=== PATIENT | female | born 2000 | race Two or more races ===

== ENCOUNTER 2023-01-12 09:41 | Emergency (ER) | payer OTHER ==
[2023-01-12 09:57] VITALS: BP 123/77; PULSE 98; RESP 20; TEMP 98.4; BMI 26.4
[2023-01-12] MEDS ORDERED: ACETAMINOPHEN 325 MG TABLET (FP) PO ONE (10:42)
[2023-01-12] MEDS ORDERED: IBUPROFEN 400 MG TABLET (FP) PO ONE ×2 (10:42→11:10)
[2023-01-12] MEDS ORDERED: ACETAMINOPHEN 325 MG TABLET (FP) ONE (11:10)
[2023-01-12 11:43] LABS: THROAT:GRP A STREP NOT DETECTED (NOTDETECTED)
== END 2023-01-12 11:36 | disposition home or self-care (01) ==
LOC: JER 09:41
DX: R05.1 Acute cough (principal); R09.81 Nasal congestion; J02.9 Acute pharyngitis, unspecified
CPT/HCPCS: 0241U-QW; 87651; 99283-25

== ENCOUNTER 2023-02-19 23:19 | Emergency (ER) | payer OTHER ==
[2023-02-19 23:25] VITALS: BP 114/76; PULSE 92; RESP 18; TEMP 98; BMI 26.9
[2023-02-20] MEDS ORDERED: KETOROLAC TROMETHAMINE 15 MG/ML VIAL IM ONE (00:01)
[2023-02-20] MEDS ORDERED: LIDOCAINE 5% TOPICAL PATCH TP ONE (00:01)
[2023-02-20] MEDS ORDERED: ACETAMINOPHEN 500 MG TABLET (FP) PO ONE (00:01)
[2023-02-20] MEDS ORDERED: LIDOCAINE 5% TOPICAL PATCH ONE (00:27)
[2023-02-20] MEDS ORDERED: ACETAMINOPHEN 500 MG TABLET (FP) ONE (00:27)
[2023-02-20] MEDS ORDERED: KETOROLAC TROMETHAMINE 15 MG/ML VIAL ONE (00:27)
[2023-02-20] MEDS ORDERED: LIDOCAINE PATCH REMOVAL MC ONE (13:00)
== END 2023-02-20 02:01 | disposition home or self-care (01) ==
LOC: JER 23:19
PROC: 3E023GC Introduction of Other Therapeutic Substance into Muscle, Percutaneous Approach (ICD-10-PCS; principal; 2023-02-19)
DX: M54.89 Other dorsalgia (principal); Y04.8XXA Assault by other bodily force, initial encounter
CPT/HCPCS: 71101-TC-LT-FY; 99284-25

== ENCOUNTER 2023-04-09 14:23 | Emergency (ER) | payer OTHER ==
[2023-04-09 14:32] VITALS: BP 91/67; PULSE 86; RESP 16; TEMP 97.8; BMI 27.9
[2023-04-09] MEDS ORDERED: ACETAMINOPHEN 500 MG TABLET (FP) PO ONE (15:29)
[2023-04-09] MEDS ORDERED: ACETAMINOPHEN 500 MG TABLET (FP) ONE (15:43)
[2023-04-09 15:55] LABS: EPI CELLS 3 /uL (0-25.1); HYALINE CASTS 0 /uL (0-3.1); PH,URINE 7.5 (5.0-8.0); URINE APPEARANCE CLEAR; URINE BACTERIA 15 /uL (0-1359); URINE BILIRUBIN NEGATIVE (NEGATIVE); URINE COLOR YELLOW; URINE GLUCOSE (UA) NEGATIVE (NEGATIVE); URINE KETONE NEGATIVE (NEGATIVE); URINE LEUK ESTERASE NEGATIVE (NEGATIVE); URINE NITRITE NEGATIVE (NEGATIVE); URINE PROTEIN NEGATIVE (NEGATIVE); URINE RBC 182 /uL (0-23.9); URINE UROBILINOGEN 0.2 mg/dL (0.2-1.0); URINE WBC 3 /uL (0-25.8)
[2023-04-09 15:58] LABS: HCG,QUALITATIVE URINE Negative
== END 2023-04-09 17:50 | disposition home or self-care (01) ==
LOC: JERFT 14:23 → JER 14:23 → JERFT 17:50
DX: R07.0 Pain in throat (principal); N89.9 Noninflammatory disorder of vagina, unspecified; R30.0 Dysuria; R50.9 Fever, unspecified
CPT/HCPCS: 76830-TC; 81003; 84703; 87077; 87086; 87651; 99284-25